=== PATIENT | female | born 1985 | race Caucasian/White ===

== ENCOUNTER 2023-06-22 12:46 | Outpatient (OUT) | payer OTHER, SELFPAY ==
--- NOTE | 2023-06-22 | US_ITS ---
Patient: OXANA DOUGLAS Exam Date: 06/22/2023 : 1985 Gender:F Ordering : ORLANDO LINK Admission #: [id number] Family : DR KOLE Nick JONASMELANIE Order #: [id number] CLICK HERE TO VIEW EXAM RADIOLOGY REPORT PROCEDURE: MM DIAGNOSTIC MAMMO UNILAT RT, 06/22/2023, 13:01 US BREAST RT LIMITED, 06/22/2023, 13:27 COMPARISON: [facility] MAMM DIAGNOSTIC 3D [place] CAD, 12/23/2022. INDICATIONS: mass of upper inner quadrant of right breast N63.12 Calculator Name NCI Breast Cancer Risk Assessment Tool 5 Year Breast Cancer Risk 0.30% Lifetime Breast Cancer Risk 7.40% Personal Breast Cancer No Personal Ovarian Cancer No Treatments None Family Cancers Aunt-paternal with breast cancer at age 66. LOCATION: [facility] BREAST COMPOSITION: Extremely dense, which lowers the sensitivity of mammography. FINDINGS: DIAGNOSTIC CATEGORY 3--PROBABLY BENIGN FINDING. THE FOLLOWING FINDING(S) HAS A HIGH PROBABILITY OF A BENIGN ETIOLOGY: The right breast is stable in size and overall fibroglandular configuration. There is a 1.3 x 0.9 well circumscribed nodule lower inner quadrant, 3 o'clock, stable from the prior exam. No associated ultrasound abnormality. As this lesion has been observed for 6 months only, an additional 6 month follow up is recommended RECOMMENDATIONS: SHORT TERM FOLLOW-UP DIAGNOSTIC MAMMOGRAM RIGHT BREAST IN 6 MONTHS. PLEASE NOTE: A NORMAL MAMMOGRAM DOES NOT EXCLUDE THE POSSIBILITY OF BREAST CANCER. A CLINICALLY SUSPICIOUS PALPABLE LUMP SHOULD BE BIOPSIED. Dictated by: Bassam Varma MD on 06/22/2023 at 13:45 Approved by: Bassam Varma MD on 06/22/2023 at 13:52
== END 2023-06-22 12:47 | disposition home or self-care (01) ==
LOC: MAMMO 12:50
PROVIDERS: PCP Family Medicine; Visit Provider Nurse Practitioner Family
DX: N63.12 Unspecified lump in the right breast, upper inner quadrant (principal); N63.14 Unspecified lump in the right breast, lower inner quadrant
CPT/HCPCS: 76642; 77065